=== PATIENT | male | born 1945 | race American Indian/Alaskan Native ===

== ENCOUNTER 2017-10-11 13:07 | Emergency (ER) | payer MEDICARE ==
[2017-10-11 13:30] VITALS: BP 147/86; PULSE 74; RESP 20; TEMP 98; O2SAT 97
--- NOTE | 2017-10-11 14:18 | C.PDOC ---
History Of Present Illness 72 y/o male presents to ED with complaints of left lower rib pain for 5 days after falling out of bed and landing on small object. Patient reports rib became painful immediately and reports taking Aleve twice daily with no improvement. Patient denies chest pain, sob, fever or any other complaints at this time. Time Seen by Provider: 10/11/17 13:31 Chief Complaint (Nursing): Rib Injury History Per: Patient History/Exam Limitations: no limitations Onset/Duration Of Symptoms: Days Current Symptoms Are (Timing): Still Present Past Medical History Reviewed: Historical Data, Nursing Documentation, Vital Signs Vital Signs: Last Vital Signs Temp 98 F 10/11/17 13:27 Pulse 74 10/11/17 13:27 Resp 20 10/11/17 13:27 BP 147/86 10/11/17 13:27 Pulse Ox 97 10/11/17 14:19 - Medical History PMH: No Chronic Diseases Surgical History: No Surg Hx Family History: States: No Known Family Hx - Social History Hx Alcohol Use: Yes Hx Substance Use: No Review Of Systems Constitutional: Negative for: Fever, Chills Cardiovascular: Negative for: Chest Pain Respiratory: Positive for: Other (Rib pain). Negative for: Cough, Shortness of Breath Gastrointestinal: Negative for: Nausea, Vomiting Skin: Negative for: Rash Physical Exam - Physical Exam Appears: Non-toxic, No Acute Distress Skin: Normal Color, Warm, Dry, No Rash Head: Atraumatic, Normacephalic Eye(s): bilateral: Normal Inspection Oral Mucosa: Moist Throat: Normal, No Erythema, No Exudate Neck: Supple Chest: Symmetrical, Other (Left lower rib tender from mid clavicular to mid axillary line (-)ecchymosis) Cardiovascular: Rhythm Regular Respiratory: Normal Breath Sounds, No Rales, No Rhonchi, No Wheezing Gastrointestinal/Abdominal: Soft, No Tenderness, No Guarding, No Rebound Extremity: Normal ROM, Capillary Refill (<2 seconds) Neurological/Psych: Oriented x3 ED Course And Treatment O2 Sat by Pulse Oximetry: 97 (RA) Pulse Ox Interpretation: Normal - Other Rad L ribs X-Ray: Interpreted by Me, Read By Radiologist (+ non-displaced L lateral 10th rib fx, no pna/pnx/hemo-pneumo) Medical Decision Making Medical Decision Making: fall from bed height 5 days ago with isolated L lateral 10th rib fx Disposition Doctor Will See Patient In The: Office Counseled Patient/Family Regarding: Studies Performed, Diagnosis - Disposition Disposition: HOME/ ROUTINE Disposition Time: 15:07 Condition: GOOD Forms: [facility] (Faroese) - Clinical Impression Clinical Impression: Rib fracture - Scribe Statement The provider has reviewed the documentation as recorded by the Shmuelibpanda Pierce All medical record entries made by the Shmuelibpanda were at my direction and personally dictated by me. I have reviewed the chart and agree that the record accurately reflects my personal performance of the history, physical exam, medical decision making, and the department course for this patient. I have also personally directed, reviewed, and agree with the discharge instructions and disposition.
--- NOTE | 2017-10-11 14:47 | RAD ---
PROCEDURE: Radiographs of the Chest and Left Ribs. HISTORY: L lateral ribs, beads where tender, please COMPARISON: None available. TECHNIQUE: Frontal radiograph of the chest and multiple oblique radiographs of the left ribs were obtained. FINDINGS: LEFT RIBS: There is a nondisplaced fracture of the left 10th rib laterally. There are no other rib fractures identified. LUNGS: Clear. PLEURA: No pneumothorax or pleural fluid. CARDIOVASCULAR: Normal sized heart. No pulmonary vascular congestion. OTHER FINDINGS: None. IMPRESSION: Fracture left 10th rib laterally. No additional abnormality.
== END 2017-10-11 15:48 | disposition home or self-care (01) ==
LOC: C.ER 13:07
DX: S22.32XA Fracture of one rib, left side, initial encounter for closed fracture (principal); W06.XXXA Fall from bed, initial encounter